=== PATIENT | female | born 1945 | race Caucasian/White ===

== ENCOUNTER → 2017-05-31 | Outpatient (CLI) | payer MEDICARE ==
[~2017-05-31] MED LIST: AMLO5TAB2 PO; ERGO500017 PO; LEVO137T3 PO; MAGN400T7 PO; OMEP40CA6 PO; SIMV20TA3 PO
[2017-05-31 10:46] LABS: HEMATOCRIT 44.8 % (34.6-47.8); WHITE BLOOD COUNT 4.3 x10^3/uL (3.4-10)
[2017-05-31 10:57] LABS: ASPARTATE AMINO TRANSFERASE 17 U/L (15-37); BLOOD UREA NITROGEN 15 mg/dL (7-18)
== END | disposition home or self-care (01) ==
LOC: STAR 09:16
PROVIDERS: ATTEND Orthopaedic Surgery
DX: M16.11 Unilateral primary osteoarthritis, right hip (principal); Z96.653 Presence of artificial knee joint, bilateral; Z88.2 Allergy status to sulfonamides
CPT/HCPCS: 36415; 80053; 81001; 85025; 87081; 87086; 93005

== ENCOUNTER 2017-06-14 08:08 | Inpatient (IN) | payer MEDICARE ==
[~2017-06-14] VITALS: Ht 170.2 cm; Wt 91.7 kg
[2017-06-14] MEDS ORDERED: KETOROLAC 60 MG/2 ML ONE (10:42)
[2017-06-14] MEDS ORDERED: BACITRACIN 50,000 UNIT ONE (10:42)
[2017-06-14] MEDS ORDERED: ROPIvacaine/PF 0.5%, 30 ML ONE (10:42)
[2017-06-14] MEDS ORDERED: SODIUM CHLORIDE 0.9% 100 ML ONE (10:42)
[2017-06-14 11:27] VITALS: BP 165/98
[2017-06-14] MEDS ORDERED: LACTATED RINGERS 1,000 ML IV SCH (11:27)
[2017-06-14] MEDS ORDERED: SCOPOLAMINE PATCH, 1.5MG PATCH.TD72 TD ONE ×2 (11:46→12:38)
[2017-06-14] MEDS ORDERED: PROPOFOL 10 MG/ML, 20ML ONE ×2 (11:57→13:24)
[2017-06-14] MEDS ORDERED: MIDAZOLAM 1 MG/ML, 2ML ONE ×2 (11:57→14:49)
[2017-06-14] MEDS ORDERED: CEFAZOLIN 1,000 MG ONE ×2 (11:57)
[2017-06-14] MEDS ORDERED: SUCCINYLCHOLINE 20 MG/ML, 10ML ONE (11:57)
[2017-06-14] MEDS ORDERED: ROCURONIUM 10 MG/ML,10ML ONE (11:57)
[2017-06-14] MEDS ORDERED: FENTANYL PF 250 MCG/5ML ONE (11:57)
[2017-06-14] MEDS ORDERED: ONDANSETRON 2MG/ML, 2ML ONE ×2 (11:58)
[2017-06-14] MEDS ORDERED: DEXAMETHASONE 4 MG/ML, 1ML ONE ×2 (11:58)
[2017-06-14] MEDS ORDERED: LIDOCAINE GEL 2%, 5ML ONE (11:58)
[2017-06-14] MEDS ORDERED: MEPERIDINE/PF 25MG/0.5ML IVPush PRN (12:30)
[2017-06-14] MEDS ORDERED: OXYcodone 5 MG/5 ML ORAL.SOL UDC PO PRN (12:30)
[2017-06-14] MEDS ORDERED: LABETALOL 5MG/ML, 20ML IV PRN (12:30)
[2017-06-14] MEDS ORDERED: ALBUTEROL SULFATE 2.5 MG/3 ML NPPB PRN (12:30)
[2017-06-14] MEDS ORDERED: PROMETHAZINE 25 MG/ML, 1ML IV PRN (12:30)
[2017-06-14] MEDS ORDERED: hydrALAzine 20 MG/ML, 1ML IV PRN (12:30)
[2017-06-14] MEDS ORDERED: ONDANSETRON 2MG/ML, 2ML IVPush PRN (12:30)
[2017-06-14] MEDS ORDERED: ACETAMINOPHEN 325 MG TABLET PO PRN ×3 (12:30→15:45)
[2017-06-14] MEDS ORDERED: FENTANYL PF 100 MCG/2ML IV PRN (12:30)
[2017-06-14] MEDS ORDERED: GLYCOPYRROLATE 0.2MG/1ML, 5ML ONE (12:38)
[2017-06-14] MEDS ORDERED: EPINEPHRINE 1 MG/ML, 1ML ONE (12:39)
[2017-06-14] MEDS ORDERED: TRANEXAMIC ACID 100 MG/ML, 10ML ONE (12:39)
[2017-06-14] MEDS ORDERED: morphine SULFATE/PF 1 MG/ML, 10ML ONE (12:54)
[2017-06-14] MEDS ORDERED: KETAMINE 10 MG/ML, 20ML ONE (13:12)
[2017-06-14] MEDS ORDERED: FENTANYL PF 100 MCG/2ML ONE (13:52)
[2017-06-14] MEDS ORDERED: SODIUM CHLORIDE 0.9% 1,000 ML IV SCH (14:15)
[2017-06-14] MEDS: HYDROmorphone 1 MG/ML, 1ML IV PRN ×5 (14:26→15:20)
[2017-06-14] MEDS ORDERED: HYDROmorphone 1 MG/ML, 1ML ONE ×2 (14:27→14:45)
[2017-06-14] MEDS ORDERED: OXYcodone/APAP 5/325MG TABLET PO PRN ×2 (14:30→15:45)
[2017-06-14] MEDS ORDERED: ENOXAPARIN 30 MG/0.3 ML SQ ONE (14:30)
[2017-06-14] MEDS ORDERED: PROMETHAZINE 25 MG/ML, 1ML IM PRN ×2 (14:30→15:45)
[2017-06-14] MEDS ORDERED: SENNA/DOCUSATE TABLET PO PRN ×2 (14:30→15:45)
[2017-06-14] MEDS ORDERED: ALUMINUM/MAG/SIMETHICONE 30 ML UDC PO PRN ×2 (14:30→15:45)
[2017-06-14] MEDS ORDERED: HYDROcodone/APAP 5/325 TABLET PO PRN ×2 (14:30→15:45)
[2017-06-14] MEDS ORDERED: BISACODYL 10 MG SUPP PR PRN ×2 (14:30→15:45)
[2017-06-14] MEDS ORDERED: morphine SULFATE 10 MG/ML, 1ML IV PRN ×2 (14:30→15:45)
[2017-06-14] MEDS ORDERED: CEFAZOLIN PMX 1GM/50ML 50 ML IVPB SCH (14:30)
[2017-06-14] MEDS ORDERED: ONDANSETRON 2MG/ML, 2ML IV PRN ×2 (14:30→15:45)
[2017-06-14] MEDS ORDERED: MAGNESIUM HYDROXIDE 8%, 30ML UDC PO PRN ×2 (14:30→15:45)
[2017-06-14] MEDS ORDERED: KETOROLAC 30 MG/1 ML IV SCH (14:30)
[2017-06-14] MEDS: MIDAZOLAM 1 MG/ML, 2ML IV PRN ×2 (14:50→14:56)
[2017-06-14 16:15] VITALS: BP 138/83
[2017-06-14] MEDS: KETOROLAC 30 MG/1 ML IV SCH (16:48)
[2017-06-14] MEDS: SODIUM CHLORIDE 0.9% 1,000 ML IV SCH ×2 (16:48→23:45)
[2017-06-14 19:00] VITALS: BP 121/66
[2017-06-14] MEDS ORDERED: MAGNESIUM OXIDE 400 MG TABLET PO PRN (19:30)
[2017-06-14] MEDS: DOCUSATE 100 MG CAPSULE PO SCH (20:19)
[2017-06-14] MEDS: CEFAZOLIN PMX 1GM/50ML 50 ML IVPB SCH (20:19)
[2017-06-14] MEDS ORDERED: DOCUSATE 100 MG CAPSULE PO SCH (21:00)
[2017-06-14 23:33] VITALS: BP 112/71
[2017-06-15] MEDS: KETOROLAC 30 MG/1 ML IV SCH ×2 (00:37→08:57)
[2017-06-15 03:20] VITALS: BP 102/62
[2017-06-15] MEDS: CEFAZOLIN PMX 1GM/50ML 50 ML IVPB SCH ×2 (04:38→12:02)
[2017-06-15] MEDS ORDERED: LEVOTHYROXINE 137 MCG TABLET PO SCH (06:00)
[2017-06-15 07:16] VITALS: BP 114/75
[2017-06-15] MEDS ORDERED: OMEPRAZOLE 20 MG CAPSULE.DR PO SCH (07:30)
[2017-06-15 08:05] VITALS: BP 118/67
[2017-06-15] MEDS: SODIUM CHLORIDE 0.9% 1,000 ML IV SCH (08:53)
[2017-06-15] MEDS: DOCUSATE 100 MG CAPSULE PO SCH (08:57)
[2017-06-15] MEDS ORDERED: SIMVASTATIN 20 MG TABLET PO SCH (09:00)
[2017-06-15] MEDS ORDERED: AMLODIPINE 5 MG TABLET PO SCH (09:00)
[2017-06-15] MEDS ORDERED: ENOXAPARIN 40 MG/0.4 ML SQ ONE (12:00)
[2017-06-15 14:17] VITALS: BP 122/71
[2017-06-16] MEDS ORDERED: ERGOCALCIFEROL 50,000 UNIT CAPSULE PO SCH (09:00)
== END 2017-06-15 14:40 | disposition home or self-care (01) | DRG 470 ==
LOC: ORIP 10:27 → UNDODISIN 15:30 → 4NOR 16:03
PROVIDERS: ADMIT Orthopaedic Surgery; ATTEND Orthopaedic Surgery
PROC: 0SR904Z Replacement of Right Hip Joint with Ceramic on Polyethylene Synthetic Substitute, Open Approach (ICD-10-PCS; principal; 2017-06-14 12:30)
DX: M16.11 Unilateral primary osteoarthritis, right hip (principal); Z88.2 Allergy status to sulfonamides; Z88.8 Allergy status to other drugs, medicaments and biological substances
CPT/HCPCS: 36415; 86850; 86900; J0171; J0690; J1100; J1170; J1650; J1885; J2250; J2274; J2405; J2550; J2704; J2795; J3010; J3490; J0330; J7030; J7120

== ENCOUNTER → 2018-09-02 | Outpatient (CLI) | payer MEDICARE ==
[~2018-09-02] MED LIST changes: +AMLO-150 PO; -AMLO5TAB2 PO; +DEXL60CA2 PO; +FLONASE
== END | disposition home or self-care (01) ==
LOC: CFH 12:28
PROVIDERS: ATTEND Family Medicine
DX: Z12.31 Encounter for screening mammogram for malignant neoplasm of breast (principal); G31.84 Mild cognitive impairment of uncertain or unknown etiology; G31.9 Degenerative disease of nervous system, unspecified; M85.88 Other specified disorders of bone density and structure, other site
CPT/HCPCS: 70450; 77063; 77080; 77067

== ENCOUNTER → 2018-11-04 | Outpatient (CLI) | payer MEDICARE | END | disposition home or self-care (01) | LOC: CVU 06:55 | PROVIDERS: ATTEND Family Medicine | DX: I08.1 Rheumatic disorders of both mitral and tricuspid valves (principal); I70.208 Unspecified atherosclerosis of native arteries of extremities, other extremity; I83.91 Asymptomatic varicose veins of right lower extremity; I10 Essential (primary) hypertension; E66.9 Obesity, unspecified; Z87.891 Personal history of nicotine dependence | CPT/HCPCS: 0399T; 93306; 93922; 93970 ==

== ENCOUNTER → 2019-09-07 | Outpatient (CLI) | payer MEDICARE ==
[~2019-09-07] MED LIST changes: -MAGN400T7 PO; +MAGN400T9 PO; +OMEP40CA42 PO; -OMEP40CA6 PO; +SIMV20TA19 PO; -SIMV20TA3 PO
== END | disposition home or self-care (01) ==
LOC: CFH 10:15
PROVIDERS: ATTEND Obstetrics & Gynecology Gynecology
DX: Z12.31 Encounter for screening mammogram for malignant neoplasm of breast (principal); N64.89 Other specified disorders of breast
CPT/HCPCS: 77063; 77067

== ENCOUNTER 2019-12-19 13:22 | Emergency (ER) | payer MEDICARE ==
[~2019-12-19] VITALS: Ht 170.2 cm; Wt 99.7 kg
[2019-12-19] MEDS ORDERED: SIMV20TA19 PO (14:01)
[2019-12-19] MEDS ORDERED: OMEP40CA42 PO (14:01)
[2019-12-19] MEDS ORDERED: IBAN150T15 PO (14:01)
--- NOTE | 2019-12-19 14:06 | NUR ---
THIS IS A 74 YO F W/ C/O EXERTIONAL DYSPNEA SINCE WEDNESDAY. PT REPORTS [id number] YEARS DUE TO POST NASAL DRIP. DENIES CP/DIZZINESS/ABD PAIN/N/V. PT RESP EVEN AND UNLABORED, VSS, NADN. PT RESTING ON GURNEY W/ CALL LIGHT IN REACH AND SIDE RAILS UPX2. AWAITING ED EVAL.
--- NOTE | 2019-12-19 14:09 | NUR ---
MED REC DONE.
--- NOTE | 2019-12-19 14:22 | NUR ---
IN ROOM FOR ED EVAL.
[2019-12-19] MEDS ORDERED: SODIUM CHLORIDE FLUSH 10ML SYR IVF ONE (14:30)
--- NOTE | 2019-12-19 14:35 | NUR ---
PIV STARTED, LABS DRAWN AND SENT TO LAB. PT AWARE OF PLAN FOR CTA.
[2019-12-19 14:53] LABS: BASOPHILS # (AUTO) 0.02 x10^3/uL (0-0.1); BASOPHILS % (AUTO) 0 % (0-1); EOSINOPHILS # (AUTO) 0.06 x10^3/uL (0-0.4); EOSINOPHILS % (AUTO) 1 % (1-7); LYMPHOCYTES # (AUTO) 1.11 x10^3/uL (1-3.4); LYMPHOCYTES % (AUTO) 20 % (22-44); MD NO; MEAN CORPUSCULAR HEMOGLOBIN 30.7 pg (27.0-34.8); MEAN CORPUSCULAR HGB CONC 33.7 g/dL (32.4-35.8); MEAN CORPUSCULAR VOLUME 91.3 fL (80-100); MEAN PLATELET VOLUME 7.8 fL (7.4-10.4); MONOCYTES # (AUTO) 0.49 x10^3/uL (0.2-0.8); MONOCYTES % (AUTO) 9 % (2-9); NEUTROPHILS # (AUTO) 3.98 x10^3/uL (1.8-6.8); NEUTROPHILS % (AUTO) 70 % (42-75); PLATELET COUNT 196 x10^3/uL (130-400); RED BLOOD COUNT 4.91 x10^6/uL (3.82-5.3)
[2019-12-19 14:58] LABS: ALANINE AMINOTRANSFERASE 26 U/L (12-78); ALBUMIN 3.7 g/dL (3.4-5.0); ANION GAP 8 mmol/L (5-15); CALCIUM 9.2 mg/dL (8.5-10.1); CHLORIDE 109 mmol/L (98-107); CREATININE 0.81 mg/dL (0.55-1.02)
[2019-12-19 15:02] LABS: ALKALINE PHOSPHATASE 61 U/L (45-117); BILIRUBIN,TOTAL 0.4 mg/dL (0.2-1.0); TROPONIN I < 0.015 ng/mL (0.000-0.045)
--- NOTE | 2019-12-19 15:25 | NUR ---
PT AMBULATED TO THE BR W/ A STEADY GAIT. RETURNED TO ROOM, CONNECTED TO MONITORING. AWAITING CTA.
--- NOTE | 2019-12-19 15:40 | NUR ---
PT TO CT.
[2019-12-19] MEDS ORDERED: OMNIPAQUE 350 MG/ML, 75ML BOTTLE ONE (15:59)
--- NOTE | 2019-12-19 16:08 | NUR ---
ALL TESTS RESULTED. PT IS UP FOR RECHECK AT THIS TIME.
[2019-12-19 16:14] VITALS: BP 143/94
--- NOTE | 2019-12-19 16:57 | NUR ---
Patient given discharge instructions and they have confirmed that they understand the instructions. Patient ambulatory with steady gait.
== END 2019-12-19 16:58 | disposition home or self-care (01) ==
LOC: ED 15:19
DX: R06.00 Dyspnea, unspecified (principal); R05 Cough; I21.9 Acute myocardial infarction, unspecified; Z87.891 Personal history of nicotine dependence; Z86.718 Personal history of other venous thrombosis and embolism
CPT/HCPCS: 36415; 71275; 80053; 83880; 84484; 85025; 93005; 99285; Q9967

== ENCOUNTER 2020-04-12 16:02 | Emergency (ER) | payer MEDICARE ==
[~2020-04-12] VITALS: Ht 170.2 cm; Wt 95.5 kg
[~2020-04-12 16:02] MED LIST changes: +IBAN150T15 PO
[2020-04-12 16:51] LABS: BASOPHILS # (AUTO) 0.03 x10^3/uL (0-0.1); BASOPHILS % (AUTO) 1 % (0-1); EOSINOPHILS # (AUTO) 0.09 x10^3/uL (0-0.4); EOSINOPHILS % (AUTO) 2 % (1-7); LYMPHOCYTES # (AUTO) 1.41 x10^3/uL (1-3.4); LYMPHOCYTES % (AUTO) 29 % (22-44); MD NO; MEAN CORPUSCULAR HEMOGLOBIN 30.9 pg (27.0-34.8); MEAN CORPUSCULAR HGB CONC 33.8 g/dL (32.4-35.8); MONOCYTES # (AUTO) 0.31 x10^3/uL (0.2-0.8); MONOCYTES % (AUTO) 7 % (2-9); NEUTROPHILS # (AUTO) 2.97 x10^3/uL (1.8-6.8); NEUTROPHILS % (AUTO) 62 % (42-75); PLATELET COUNT 159 x10^3/uL (130-400); RED BLOOD COUNT 5.02 x10^6/uL (3.82-5.3); RED CELL DISTRIBUTION WIDTH 14.4 % (9.6-15.2)
[2020-04-12 17:02] LABS: ALBUMIN 3.8 g/dL (3.4-5.0); ANION GAP 7 mmol/L (5-15); CALCIUM 9.3 mg/dL (8.5-10.1); CHLORIDE 111 mmol/L (98-107); CREATININE 0.85 mg/dL (0.55-1.02)
[2020-04-12 17:04] LABS: INTERNATIONAL NORMALIZED RATIO 1.01 (0.93-1.1); PROTHROMBIN TIME 10.4 Seconds (9.6-11.5)
--- NOTE | 2020-04-12 17:43 | NUR ---
BREAK RN: CONTACT WITH PT, 75 YR OLD FEMALE HERE WITH C/O "I WAS TOLD I HAVE A DVT IN MY LEFT LEG." NOTICED SWELLING OVER THE PAST WEEK. PT DENIES PAIN. 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 SR PER MONITOR. AUTO BP AND PULSE OX. PT AWARE OF POC. PT WITH C/O BEING COLD. PROVIDED WITH WARM BLANKETS.
[2020-04-12] MEDS ORDERED: APIXABAN 5 MG TABLET ONE (17:54)
[2020-04-12] MEDS ORDERED: SODIUM CHLORIDE FLUSH 10ML SYR IVF ONE (18:00)
--- NOTE | 2020-04-12 18:08 | NUR ---
PT TO CT VIA [facility]
--- NOTE | 2020-04-12 18:14 | NUR ---
REPORT TO SWETA ADAM
[2020-04-12 18:20] LABS: TROPONIN I < 0.015 ng/mL (0.000-0.045)
[2020-04-12] MEDS ORDERED: APIXABAN 5 MG TABLET PO SCH (18:30)
[2020-04-12] MEDS ORDERED: APIXABAN 5 MG TABLET PO ONE ×2 (19:00→21:00)
--- NOTE | 2020-04-12 19:04 | NUR ---
PT IN BED IN NAD PLAYING ON IPAD. PT CHART UP FOR MD RECHECK. PT AWARE. VS WITHIN NORMAL LIMITS.
[2020-04-12 19:46] VITALS: BP 148/92
[2020-04-12] MEDS ORDERED: OMNIPAQUE 350 MG/ML, 100ML BOTTLE ONE (20:54)
== END 2020-04-12 19:48 | disposition home or self-care (01) ==
LOC: ED 18:51
DX: I82.432 Acute embolism and thrombosis of left popliteal vein (principal); M79.89 Other specified soft tissue disorders; M79.605 Pain in left leg; R94.31 Abnormal electrocardiogram [ECG] [EKG]; I10 Essential (primary) hypertension; E03.9 Hypothyroidism, unspecified; Z87.891 Personal history of nicotine dependence; Z86.718 Personal history of other venous thrombosis and embolism
CPT/HCPCS: 36415; 71275; 80048; 82040; 84484; 85025; 85610; 85730; 93005; 99285; Q9967

== ENCOUNTER 2021-01-28 23:21 | Emergency (ER) | payer MEDICARE ==
[~2021-01-28] VITALS: Ht 170.2 cm; Wt 98.0 kg
[~2021-01-28 23:21] MED LIST changes: -OMEP40CA42 PO; +OMEP40CA8 PO
--- NOTE | 2021-01-28 23:57 | NUR ---
PT CAME INTO ED THIS EVENING DUE TO DIZZINESS/LIGHT HEADEDNESS THAT STARTED WHILE SITTING ON COUCH WATCHING TV AT HOME. PT STATES IT COMES IN WAVES BUT WORSENS WHEN STANDING. PT PLACED ON SPO2/BP/ECG MONITORING. PT RECENTLY DIAGNOSED A FEW MONTHS PRIOR WITH A DVT BEHIND LEFT KNEE, PLACED ON ELIQUIS. PT ALSO C/O SOB, FEELING THOUGH "I HAVE TO BREATHE THROUGH MY MOUTH TO GET ENOUGH AIR". Patient is resting comfortably in bed. Bed in lowest, rails engaged, call light on lap. FAMILY AT . [facility].
--- NOTE | 2021-01-29 00:57 | NUR ---
NIECY ERP AT FOR EVAL AND POC. NO CHANGE IN PT CONDITION, PT NAD, IV PLACED, MEDICATED PER MAR, PROVIDED WATER FOR COMFORT, WCTM. WAITING FOR LAB AND CT RESULTS.
[2021-01-29] MEDS ORDERED: SODIUM CHLORIDE 0.9% 1,000ML IVBOLUS ONE (01:00)
[2021-01-29] MEDS ORDERED: MECLIZINE CHEWABLE 25 MG TAB PO ONE (01:00)
[2021-01-29] MEDS ORDERED: SODIUM CHLORIDE FLUSH 10ML SYR IVF ONE (01:00)
[2021-01-29] MEDS ORDERED: MECLIZINE CHEWABLE 25 MG TAB ONE (01:01)
[2021-01-29 01:21] LABS: BASOPHILS % (AUTO) 3 % (0-1); EOSINOPHILS % (AUTO) 1 % (1-7); LYMPHOCYTES % (AUTO) 20 % (22-44); MEAN CORPUSCULAR HGB CONC 33.9 g/dL (32.4-35.8); MEAN PLATELET VOLUME 9.1 fL (7.4-10.4); MONOCYTES % (AUTO) 6 % (2-9); NEUTROPHILS % (AUTO) 69 % (42-75); PLATELET COUNT 151 x10^3/uL (130-400); RED BLOOD COUNT 4.99 x10^6/uL (3.82-5.3); RED CELL DISTRIBUTION WIDTH 14.4 % (9.6-15.2)
[2021-01-29 01:30] LABS: ALBUMIN 3.7 g/dL (3.4-5.0); ANION GAP 7 mmol/L (5-15); CALCIUM 9.3 mg/dL (8.5-10.1); CHLORIDE 109 mmol/L (98-107); CREATININE 0.88 mg/dL (0.55-1.02)
--- NOTE | 2021-01-29 01:30 | NUR ---
pt resting on shaila, son at , no change in condition at this time. awaiting test results. wctm.
[2021-01-29 01:33] LABS: TROPONIN I < 0.015 ng/mL (0.000-0.045)
[2021-01-29 02:41] LABS: FREE T4 (FREE THYROXINE) 1.39 ng/dL (0.76-1.46)
--- NOTE | 2021-01-29 03:00 | NUR ---
pt ambulated to restroom with rn standby assist. nad, back to bed after using restroom. denies additional needs at this time. states the medication helped her feel significantly better. Patient is resting comfortably in bed. Bed in lowest, rails engaged, call light on lap. Vital Signs within normal limits. WCTM.
--- NOTE | 2021-01-29 03:50 | NUR ---
Patient is resting comfortably in bed. Bed in lowest, rails engaged, call light on lap. Vital Signs within normal limits. WCTM.
[2021-01-29 04:29] VITALS: BP 137/80
--- NOTE | 2021-01-29 04:30 | NUR ---
Patient given discharge instructions and they have confirmed that they understand the instructions. Patient ambulatory with steady gait but preferred wheelchair for dc. NAD, all questions answered appropriately, denies additional needs at this time. No personal belongings left in room after discharge.
== END 2021-01-29 04:40 | disposition home or self-care (01) ==
LOC: ED 23:42
DX: R42 Dizziness and giddiness (principal); R73.9 Hyperglycemia, unspecified; R51.9 Headache, unspecified; R07.9 Chest pain, unspecified; R94.31 Abnormal electrocardiogram [ECG] [EKG]; I10 Essential (primary) hypertension; E03.9 Hypothyroidism, unspecified; Z86.718 Personal history of other venous thrombosis and embolism; Z79.01 Long term (current) use of anticoagulants; Z87.891 Personal history of nicotine dependence
CPT/HCPCS: 36415; 70450; 71045; 80048; 82040; 82962; 84439; 84443; 84484; 85025; 93005; 96360; 99285; J7030

== ENCOUNTER → 2021-03-05 | Outpatient (CLI) | payer MEDICARE ==
[~2021-03-05] MED LIST changes: +REGADENOSON 0.4 MG/5 ML SYRINGE ONE
== END | disposition home or self-care (01) ==
LOC: RAD 06:54
PROVIDERS: ATTEND Family Medicine
DX: R42 Dizziness and giddiness (principal)
CPT/HCPCS: 78452; 93017; 93880; A9502; J2785

== ENCOUNTER → 2021-03-11 | Outpatient (CLI) | payer MEDICARE ==
[~2021-03-11] MED LIST changes: -REGADENOSON 0.4 MG/5 ML SYRINGE ONE
== END | disposition home or self-care (01) ==
LOC: CVU 06:36
PROVIDERS: ATTEND Family Medicine
DX: I08.8 Other rheumatic multiple valve diseases (principal); R42 Dizziness and giddiness
CPT/HCPCS: 93306; 93356